=== PATIENT | female | born 1930 ===

== ENCOUNTER 2017-09-28 09:05 | Day surgery (SDC) | payer MEDICARE ==
[2017-09-28] MEDS ORDERED: LEVO500T2 PO (10:04)
[2017-09-28] MEDS ORDERED: LORA1TAB PO (10:04)
[2017-09-28] MEDS ORDERED: LIDOcaine 2% 5ml jelly ONE (10:07)
== END 2017-09-28 10:55 | disposition home or self-care (01) ==
LOC: WOUND CARE 09:05
PROVIDERS: ATTEND Surgery
DX: S91.002A Unspecified open wound, left ankle, initial encounter (principal); X58.XXXA Exposure to other specified factors, initial encounter; Y93.89 Activity, other specified; Y92.89 Other specified places as the place of occurrence of the external cause; Y99.8 Other external cause status
CPT/HCPCS: 11042; 99205; A6021; A6222; A6446